=== PATIENT | male | born 1945 ===

== ENCOUNTER 2024-07-07 14:12 | Inpatient (IN) ==
[2024-07-07] MEDS ORDERED: fentaNYL 100 MCG/2 ML VIAL ONE (15:26)
[2024-07-07] MEDS ORDERED: ONDANSETRON 4 MG/2 ML VIAL ONE (15:27)
[2024-07-07] MEDS ORDERED: GLYCOPYRROLATE 0.2 MG/ML VIAL IV ONE (15:27)
[2024-07-07] MEDS ORDERED: PROPOFOL 200 MG/20 ML VIAL IV ONE (15:27)
[2024-07-07] MEDS ORDERED: DEXAMETHASONE 10 MG/ML VIAL ONE (15:27)
[2024-07-07] MEDS ORDERED: SUGAMMADEX SODIUM 200 MG/2 ML VIAL IV ONE (16:14)
[2024-07-07] MEDS ORDERED: ROCURONIUM 10 MG/ML ML IV ONE (16:14)
[2024-07-07] MEDS: ceFAZolin 2 GM in DEXTROSE 5% IN WATER 50 ML IV SCH (16:41)
[2024-07-07] MEDS ORDERED: PHENYLephrine 1 MG/10 ML SYRINGE (ANEST) ONE (17:19)
[2024-07-07] MEDS ORDERED: IPRATROPIUM/ALBUTEROL 3 ML AMPUL.NEB NEB PRN (17:29)
[2024-07-07] MEDS ORDERED: diphenhydrAMINE 50 MG/ML VIAL IV PRN (17:29)
[2024-07-07] MEDS ORDERED: NALOXONE HCL 0.4 MG/ML VIAL IV PRN (17:29)
[2024-07-07] MEDS ORDERED: fentaNYL 100 MCG/2 ML VIAL IV PRN (17:29)
[2024-07-07] MEDS ORDERED: MEPERIDINE 25 MG/ML VIAL IV PRN (17:29)
[2024-07-07] MEDS ORDERED: LACTATED RINGERS 250 ML IV PRN (17:29)
[2024-07-07] MEDS ORDERED: ONDANSETRON 4 MG/2 ML VIAL IV PRN (17:29)
[2024-07-07] MEDS ORDERED: HYDROcodone/APAP 5/325MG TABLET PO PRN (18:17)
[2024-07-07] MEDS ORDERED: GLUCAGON HCL 1 MG SUB-Q PRN (18:19)
[2024-07-07] MEDS ORDERED: [UNRECOGNIZED DRUG - OTHER] PO PRN (18:19)
[2024-07-07] MEDS ORDERED: DEXTROSE PO PRN (18:19)
[2024-07-07] MEDS ORDERED: DEXTROSE 31 GM ORAL.SUSP PO PRN (18:20)
[2024-07-07] MEDS ORDERED: DEXTROSE 50% 50 ML VIAL IV PRN (18:20)
[2024-07-07] MEDS: ACETAMINOPHEN 1,000 MG/100 ML BAG IV ONE (18:27)
[2024-07-07] MEDS: HYDROmorphone 1 MG/ML SYRINGE IV PRN (19:30)
[2024-07-07] MEDS: LIDOCAINE 2% URO-JET 10 ML JEL.PF.APP UR ONE (19:35)
[2024-07-07] MEDS: HYDROmorphone 1 MG/ML SYRINGE ONE (20:40)
[2024-07-07] MEDS: 0.9 % SODIUM CHLORIDE 10 ML SYRINGE IV SCH (20:50)
[2024-07-07] MEDS: OXYBUTYNIN CHLORIDE 5 MG TAB.XL.24H PO SCH (20:52)
[2024-07-07] MEDS: SULFAMETHOXAZOLE/TRIMETHOPRIM 1 TABLET PO SCH (20:52)
[2024-07-07] MEDS: CARVEDILOL 6.25 MG TABLET PO SCH (20:52)
[2024-07-07] MEDS: INSULIN LISPRO 1 UNIT/0.01 ML UNIT SQ SCH (20:53)
[2024-07-07] MEDS: BISACODYL 10 MG SUPP.RECT PR SCH (21:03)
[2024-07-08 06:48] LABS: Hematocrit 42.1 % (40.1-51.0); Hemoglobin 13.9 g/dL (13.7-17.5); Mean Cell Volume 91.5 fL (80.0-100.0); Mean Platelet Volume 10.6 fL (8.8-12.5); Platelet Count 305 K/mcL (140-440); Red Cell Distribution Width 12.6 % (11.5-14.5); WBC 15.6 K/mcL (4.5-11.0)
[2024-07-08] MEDS: GENTAMICIN SULFATE 210 MG in 0.9 % SODIUM CHLORIDE 250 ML IV SCH (06:52)
[2024-07-08] MEDS: EMPTYBAG IR SCH (06:52)
[2024-07-08] MEDS: GEMCITABINE HCL IR SCH (06:52)
[2024-07-08] MEDS: LACTATED RINGERS 1,000 ML IV SCH (07:05)
[2024-07-08 07:06] LABS: Blood Urea Nitrogen 29 mg/dL (8-23); Calcium 9.1 mg/dL (8.6-10.4); Carbon Dioxide 22 mmol/L (22-30); Chloride 97 mmol/L (96-108); Glomerular Filtration Rate 51; Glucose 200 mg/dL (70-105); Potassium 4.9 mmol/L (3.3-5.1); Sodium 133 mmol/L (133-145)
[2024-07-08] MEDS: 0.45 % SODIUM CHLORIDE 1,000 ML IV SCH (07:51)
[2024-07-08] MEDS: SPIRONOLACTONE 25 MG TABLET PO SCH (08:57)
[2024-07-08] MEDS: amLODIPine 10 MG TABLET PO SCH (08:57)
[2024-07-08] MEDS: LOSARTAN 50 MG TABLET PO SCH (08:57)
[2024-07-08] MEDS: TAMSULOSIN 0.4 MG CAPSULE PO SCH (08:57)
[2024-07-08] MEDS: BISACODYL 10 MG SUPP.RECT PR ONE (20:55)
[2024-07-08] MEDS: MELATONIN 3 MG TABLET PO PRN (20:55)
[2024-07-09 07:11] LABS: Blood Urea Nitrogen 34 mg/dL (8-23); Calcium 8.6 mg/dL (8.6-10.4); Carbon Dioxide 23 mmol/L (22-30); Chloride 101 mmol/L (96-108); Glomerular Filtration Rate 37; Glucose 133 mg/dL (70-105); Potassium 4.7 mmol/L (3.3-5.1); Sodium 135 mmol/L (133-145)
[2024-07-09 07:22] LABS: Hematocrit 34.8 % (40.1-51.0); Hemoglobin 11.3 g/dL (13.7-17.5); Mean Cell Volume 91.1 fL (80.0-100.0); Mean Corpuscular HGB Conc 32.5 g/dL (31.0-36.0); Mean Platelet Volume 11.1 fL (8.8-12.5); Platelet Count 262 K/mcL (140-440); RBC 3.82 M/mcL (4.63-6.08); Red Cell Distribution Width 12.9 % (11.5-14.5); WBC 13.8 K/mcL (4.5-11.0)
[2024-07-09] MEDS: 0.45 % SODIUM CHLORIDE 1,000 ML IV SCH (08:32)
[2024-07-10 06:52] LABS: Hematocrit 33.7 % (40.1-51.0); Hemoglobin 11.2 g/dL (13.7-17.5); Mean Cell Volume 90.1 fL (80.0-100.0); Mean Corpuscular HGB Conc 33.2 g/dL (31.0-36.0); Mean Platelet Volume 10.7 fL (8.8-12.5); Platelet Count 250 K/mcL (140-440); RBC 3.74 M/mcL (4.63-6.08); Red Cell Distribution Width 12.8 % (11.5-14.5); WBC 12.2 K/mcL (4.5-11.0)
[2024-07-10 07:30] LABS: Blood Urea Nitrogen 30 mg/dL (8-23); Calcium 8.7 mg/dL (8.6-10.4); Carbon Dioxide 23 mmol/L (22-30); Chloride 98 mmol/L (96-108); Glomerular Filtration Rate 40; Glucose 131 mg/dL (70-105); Potassium 4.6 mmol/L (3.3-5.1); Sodium 131 mmol/L (133-145)
[2024-07-10] MEDS: 0.9 % SODIUM CHLORIDE 1,000 ML IV SCH (09:13)
[2024-07-10] MEDS: ONDANSETRON 4 MG/2 ML VIAL IV PRN (16:52)
[2024-07-11 06:46] LABS: Blood Urea Nitrogen 26 mg/dL (8-23); Calcium 9.1 mg/dL (8.6-10.4); Carbon Dioxide 23 mmol/L (22-30); Chloride 99 mmol/L (96-108); Glomerular Filtration Rate 51; Glucose 135 mg/dL (70-105); Potassium 4.6 mmol/L (3.3-5.1); Sodium 135 mmol/L (133-145)
[2024-07-11 06:52] LABS: Hemoglobin 11.8 g/dL (13.7-17.5); Mean Corpuscular HGB Conc 33.7 g/dL (31.0-36.0); Mean Platelet Volume 10.8 fL (8.8-12.5); Platelet Count 275 K/mcL (140-440); RBC 3.89 M/mcL (4.63-6.08); Red Cell Distribution Width 12.8 % (11.5-14.5); WBC 14.5 K/mcL (4.5-11.0)
== END 2024-07-11 13:15 | DRG 666 ==
LOC: SUR 14:12 → MEDSUR 18:53 → INTOOBSV 07-09 13:04
PROVIDERS: ADMIT Urology; ATTEND Urology